=== PATIENT | female | born 1960 | race Caucasian/White ===

== ENCOUNTER 2016-04-16 13:11 | Emergency (ER) | payer SELFPAY ==
[2016-04-16] MEDS ORDERED: IBUPROFEN SUSP 100 MG/5 ML UDCUP PO ONE (13:41)
[2016-04-16] MEDS ORDERED: IBUPROFEN 600 MG TAB PO ONE (13:45)
[2016-04-16] MEDS ORDERED: OSELTAMIVIR PHOSPHATE 75 MG CAP PO ONE (14:49)
--- NOTE | 2016-04-16 14:52 | UCPHY ---
H & P Time Seen by Provider: 04/16/16 14:33 Patient Type: New HPI/ROS: 56-year-old female presents complaining of cough fevers chills body aches nasal congestion, cough worse at night for approximately 2-3 days. Review of systems As per HPI General positive fevers and chills no weakness HEENT no eye pain no eye discharge. No eye redness, no sore throat Respiratory positive cough, no shortness of breath Cardiac no chest pain, no peripheral edema GI no abdominal pain, no diarrhea, no constipation, no nausea, no vomiting no flank pain, no hematuria, no dysuria Musculoskeletal positive myalgias, no joint pain Heme no easy bruising, no easy bleeding Endo no polyuria, no polydipsia Skin no rashes, no pruritus Neuro no syncope, no dizziness, no headaches Psych is no suicidal ideation, no homicidal ideation Past Medical/Surgical History: Hypothyroidism Social History: Lives in [place]. Works full-time as a CPA Smoking Status: Never smoked Physical Exam: 56-year-old female alert and oriented appears ill positive fever positive coarse cough Alert and oriented nontoxic appearance, no acute distress afebrile Atraumatic normocephalic Extraocular muscles intact, anicteric Nares mild yellowish discharge Oropharynx mild erythema no tonsillar swelling no exudate no uvular deviation, tolerating own secretions Neck supple no lymphadenopathy Lungs clear to auscultation bilaterally, no rhonchi no wheezing Heart regular rate and rhythm Abdomen normoactive bowel sounds soft nontender Extremities no cyanosis clubbing or edema Skin no rash Constitutional: Initial Vital Signs Temperature (C) 38.6 C H 04/16/16 13:38 Heart Rate 121 H 04/16/16 13:38 Respiratory Rate 22 H 04/16/16 13:38 Blood Pressure 180/96 H 04/16/16 13:38 O2 Sat (%) 99 04/16/16 13:38 O2 Delivery Mode Room Air Allergies/Adverse Reactions: No Known Allergies Allergy (Unverified 04/16/16 13:37) Home Medications: Medication Instructions Recorded Acetaminophen with Codeine 1 each PO DAILY PRN #10 tablet 04/16/16 [Acetaminophen-Cod #4 Tablet] Levothyroxine 04/16/16 Oseltamivir Phosphate [Tamiflu 75 75 mg PO BID #10 cap 04/16/16 mg (*)] Medical Decision Making ED Course/Re-evaluation: Patient seen evaluated for cough fevers chills Physical exam significant for fever nasal congestion, however with clear lungs Influenza positive Impression Influenza a Plan Tamiflu Tylenol No. 4 at bedtime for sleep for cough suppression - Data Points Laboratory Results: 04/16/16 13:45 Influenza Typ A,B (DFA) POSITIVE FOR FLU A H (NEGATIVE) Medications Given: Discontinued Medications Ibuprofen (Motrin Oral Solution) 600 mg PO EDNOW ONE Stop: 04/16/16 13:42 Last Admin: 04/16/16 13:47 Dose: 600 mg Oseltamivir Phosphate (Tamiflu) 75 mg PO EDNOW ONE Stop: 04/16/16 14:50 Last Admin: 04/16/16 15:10 Dose: 75 mg Departure - Departure Disposition: Home, Routine, Self-Care Clinical Impression: Influenza A Condition: Good Instructions: Influenza (ED) Additional Instructions: Rest, drink plenty of liquids, acetaminophen every 4-6 hours as needed for fever body aches. I am giving a prescription for Tamiflu to be taken twice a day for 5 days. I am also giving you a prescription for Tylenol No. 4 to be taken at bedtime to some pressure cough [place]errals: [place],. [Primary Care Provider] - As per Instructions Prescriptions: Acetaminophen with Codeine [Acetaminophen-Cod #4 Tablet] 1 each PO DAILY PRN # 10 tablet PRN Reason: Cough, Severe Oseltamivir Phosphate [Tamiflu 75 mg (*)] 75 mg PO BID #10 cap - PQRS PQRS Measurement: na
[2016-04-16 15:25] VITALS: BP 142/100; PULSE 99; RESP 16; TEMP 99.5; O2SAT 95
== END 2016-04-16 15:20 | disposition home or self-care (01) ==
LOC: CED 13:11
DX: J09.X2 Influenza due to identified novel influenza A virus with other respiratory manifestations (principal)
CPT/HCPCS: 87400-PO; 99203-PO; G0463-PO